=== PATIENT | female | born 1995 | race Caucasian/White ===

== ENCOUNTER 2019-09-21 22:16 | Emergency (ER) | payer BC ==
[~2019-09-21] VITALS: Ht 154.9 cm; Wt 113.6 kg
[2019-09-21 22:27] VITALS: TEMP 98.2
[2019-09-21] MEDS ORDERED: PREDNISONE20 MG PO (22:42)
[2019-09-21 23:53] VITALS: BP 119/56; PULSE 99
== END 2019-09-21 23:53 | disposition home or self-care (01) ==
LOC: COL.ER 22:16
DX: T49.2X5A Adverse effect of local astringents and local detergents, initial encounter (principal); L50.9 Urticaria, unspecified; Z88.2 Allergy status to sulfonamides
CPT/HCPCS: J7512